=== PATIENT | female | born 1960 | race Two or more races ===

== ENCOUNTER 2018-09-20 16:55 | Emergency (ER) | payer OTHER ==
[~2018-09-20] VITALS: Ht 162.6 cm; Wt 99.8 kg
== END 2018-09-20 22:10 | disposition home or self-care (01) ==
LOC: ER 16:55
DX: S83.92XA Sprain of unspecified site of left knee, initial encounter (principal); W18.39XA Other fall on same level, initial encounter; Y93.89 Activity, other specified; Y92.89 Other specified places as the place of occurrence of the external cause; Y99.8 Other external cause status